=== PATIENT | male | born 1975 | race Caucasian/White ===

== ENCOUNTER 2017-04-24 11:53 | Emergency (ER) | payer SELFPAY ==
[~2017-04-24] VITALS: Ht 175.3 cm; Wt 145.1 kg
[2017-04-24 11:59] VITALS: BP 184/110
[2017-04-24 12:17] LABS: APPEARANCE,URINE Clear (CLEAR); BILIRUBIN,URINE Negative (NEGATIVE); BLOOD, URINE Negative Ery/uL (NEGATIVE); COLOR,URINE Yellow (YELLOW); KETONES,URINE Negative (NEGATIVE); LEUKOCYTE ESTERASE ,URINE Negative (NEGATIVE); NITRITE, URINE Negative (NEGATIVE); PROTEIN,URINE Negative (NEGATIVE); UGLUCOSE Negative (NEGATIVE)
[2017-04-24] MEDS ORDERED: AZITHROMYCIN 250 MG TABLET PO ONE (12:30)
[2017-04-24] MEDS ORDERED: CEFTRIAXONE 500 MG VIAL IM ONE (12:30)
--- NOTE | 2017-04-24 12:30 | NUR ---
B/P 169/91. ALEX BARDALES.
[2017-04-24] MEDS ORDERED: CEFTRIAXONE 500 MG VIAL ONE (12:34)
[2017-04-24] MEDS ORDERED: LIDOCAINE /MPF 1% VIAL 5 ML VIAL ONE (12:35)
[2017-04-24] MEDS ORDERED: AZITHROMYCIN 250 MG TABLET ONE (12:35)
== END 2017-04-24 13:34 | disposition home or self-care (01) ==
LOC: ER 11:55
DX: R30.0 Dysuria (principal); R31.9 Hematuria, unspecified
CPT/HCPCS: 81000-TC; 87491; 87591; A4606; J0696; J3490; Z7610